=== PATIENT | male | born 1990 | race Caucasian/White ===

== ENCOUNTER 2018-10-31 10:30 | Emergency (ER) | payer MEDICAID ==
[2018-10-31] MEDS ORDERED: NS 1,000 ML IV ONE ×2 (10:56)
[2018-10-31] MEDS ORDERED: ONDANSETRON 4 MG/2 ML VIAL IVP ONE (10:56)
--- NOTE | 2018-10-31 10:57 | EDPHY ---
H & P Stated Complaint: vomit/diarrhea x 2 days, nasal congestion Time Seen by Provider: 10/31/18 10:48 HPI/ROS: CHIEF COMPLAINT: Vomiting, diarrhea, weakness HISTORY OF PRESENT ILLNESS: The patient presents the ED with 2 days of intractable vomiting, clear watery diarrhea and weakness. The patient denies any fever, cough or congestion. The patient denies acute abdominal pain. The patient denies recent antibiotic use or travel outside the [place]. The patient denies significant past medical history. He takes no regular medications. REVIEW OF SYSTEMS: A comprehensive 10 point review of systems is otherwise negative aside from elements mentioned in the history of present illness. Source: Patient Exam Limitations: No limitations - Medical/Surgical History Hx Asthma: No Hx Chronic Respiratory Disease: No Hx Diabetes: No Hx Cardiac Disease: No Hx Renal Disease: No Hx Cirrhosis: No Hx Alcoholism: No Hx HIV/AIDS: No Hx Splenectomy or Spleen Trauma: No Other PMH: denies - Social History Smoking Status: Never smoked - Physical Exam Exam: General Appearance: Alert, no distress Eyes: Pupils equal and round no pallor or injection ENT, Mouth: Mucous membranes moist Respiratory: There are no retractions, lungs are clear to auscultation Cardiovascular: Regular rate and rhythm Gastrointestinal: Benign abdominal examination, normal bowel sounds, no focal tenderness Neurological: 5/5 strength noted all 4 extremities Skin: Warm and dry, no rashes Musculoskeletal: Neck is supple nontender Extremities: symmetrical, full range of motion Constitutional: Initial Vital Signs Temperature (C) 36.7 C 10/31/18 10:33 Heart Rate 68 10/31/18 10:33 Respiratory Rate 16 10/31/18 10:33 Blood Pressure 119/67 10/31/18 10:33 O2 Sat (%) 97 10/31/18 10:33 O2 Delivery Mode Room Air Allergies/Adverse Reactions: No Known Allergies Allergy (Unverified 10/31/18 10:33) Home Medications: Medication Instructions Recorded Ondansetron Odt [Zofran Odt] 4 mg PO Q4PRN PRN #20 tab 10/31/18 Medical Decision Making ED Course/Re-evaluation: The patient presents the ED with 2 day history of vomiting and diarrhea consistent with a gastroenteritis. The patient's abdominal examination is benign. The patient was somewhat dehydrated upon arrival. The patient had an IV established. He received a L of normal saline. He received 4 mg of IV Zofran. The patient is not had recurrent vomiting in the emergency department. The patient was evaluated in reexamined by myself several times over a 1.5 hr period. At 12:30 p.m. he is stable and continues to have a a benign abdominal examination. Patient will be discharged home with a prescription for Zofran. He is advised to return to the ED for markedly worsening symptoms or other concerns. Differential Diagnosis: Differential diagnosis considered includes gastroenteritis, dehydration, metabolic derangement - Data Points Laboratory Results: Laboratory Results 10/31/18 11:00 10/31/18 11:00 10/31/18 10/31/18 11:00 11:00 WBC 8.15 10^3/uL 10^3/uL (3.80-9.50) RBC 5.27 10^6/uL 10^6/uL (4.40-6.38) Hgb 15.4 g/dL g/dL (13.7-17.5) Hct 44.5 % % (40.0-51.0) MCV 84.4 fL fL (81.5-99.8) MCH 29.2 pg pg (27.9-34.1) MCHC 34.6 g/dL g/dL (32.4-36.7) RDW 12.8 % % (11.5-15.2) Plt Count 301 10^3/uL 10^3/uL (150-400) MPV 9.1 fL fL (8.7-11.7) Neut % (Auto) 58.2 % % (39.3-74.2) Lymph % (Auto) 31.3 % % (15.0-45.0) Owen % (Auto) 7.5 % % (4.5-13.0) Eos % (Auto) 2.3 % % (0.6-7.6) Baso % (Auto) 0.5 % % (0.3-1.7) Nucleat RBC Rel Count 0.0 % % (0.0-0.2) Absolute Neuts (auto) 4.74 10^3/uL 10^3/uL (1.70-6.50) Absolute Lymphs (auto) 2.55 10^3/uL 10^3/uL (1.00-3.00) Absolute Monos (auto) 0.61 10^3/uL 10^3/uL (0.30-0.80) Absolute Eos (auto) 0.19 10^3/uL 10^3/uL (0.03-0.40) Absolute Basos (auto) 0.04 10^3/uL 10^3/uL (0.02-0.10) Absolute Nucleated RBC 0.00 10^3/uL 10^3/uL (0-0.01) Immature Gran % 0.2 % % (0.0-1.1) Immature Gran # 0.02 10^3/uL 10^3/uL (0.00-0.10) Sodium 139 mEq/L mEq/L (135-145) Potassium 4.2 mEq/L mEq/L (3.5-5.2) Chloride 107 mEq/L mEq/L (97-110) Carbon Dioxide 23 mEq/l mEq/l (22-31) Anion Gap 9 mEq/L mEq/L (6-14) BUN 19 mg/dL mg/dL (7-23) Creatinine 0.9 mg/dL mg/dL (0.7-1.3) Estimated GFR > 60 Glucose 93 mg/dL mg/dL (70-100) Calcium 9.6 mg/dL mg/dL (8.5-10.4) Total Bilirubin 0.6 mg/dL mg/dL (0.1-1.4) Conjugated Bilirubin 0.4 mg/dL mg/dL (0.0-0.5) Unconjugated Bilirubin 0.2 mg/dL mg/dL (0.0-1.1) AST 19 IU/L IU/L (17-59) ALT 27 IU/L IU/L (21-72) Alkaline Phosphatase 71 IU/L IU/L (38-126) Total Protein 7.2 g/dL g/dL (6.3-8.2) Albumin 4.5 g/dL g/dL (3.5-5.0) Lipase 74 IU/L IU/L (23-300) Medications Given: Discontinued Medications Sodium Chloride (Ns) 1,000 mls @ 0 mls/hr IV EDNOW ONE; Wide Open PRN Reason: Protocol Stop: 10/31/18 10:57 Last Admin: 10/31/18 11:05 Dose: 1,000 mls Sodium Chloride (Ns) 1,000 mls @ 0 mls/hr IV EDNOW ONE; Wide Open PRN Reason: Protocol Stop: 10/31/18 10:57 Last Admin: 10/31/18 11:05 Dose: 1,000 mls Ondansetron HCl (Zofran) 4 mg IVP EDNOW ONE Stop: 10/31/18 10:57 Last Admin: 10/31/18 11:05 Dose: 4 mg Departure - Departure Disposition: Home, Routine, Self-Care Clinical Impression: Gastroenteritis Condition: Good Instructions: Gastroenteritis (ED) Additional Instructions: 1. Zofran has been prescribed for any ongoing nausea and vomiting. 2. You can use Imodium as needed for diarrhea. 3. Please return to the ED for markedly worsening symptoms, significant abdominal pain, high fever or other concerns. Stand Alone Forms: Work Excuse
[2018-10-31 11:16] LABS: PLATELET COUNT 301 10^3/uL (150-400)
[2018-10-31 12:32] VITALS: BP 120/60
== END 2018-10-31 12:32 | disposition home or self-care (01) ==
DX: K52.9 Noninfective gastroenteritis and colitis, unspecified (principal)
CPT/HCPCS: 96374; J2405